=== PATIENT | male | born 1970 | race Hispanic/Latino ===

== ENCOUNTER 2017-04-19 17:44 | Emergency (ER) | payer OTHER, SELFPAY ==
[2017-04-19] MEDS ORDERED: Ketorolac Tromethamine 30 MG/ML VIAL ONE (20:06)
[2017-04-19 20:27] LABS: #Eosinphils 0.2 thou/uL (0.0-0.7); #Lymphocytes 1.3 thou/uL (1.20-3.40); #Monocytes 0.6 thou/uL (0.11-0.59); #Neutrophils 4.5 thou/uL (1.40-6.50); %Eosinophils 3.3 % (0.0-10.0); %Lymphocytes 19.2 % (21.0-51.0); %Monocytes 8.7 % (0.0-10.0); Hematocrit 46.5 % (42.0-52.0); Mean Platelet Volume 8.1 fL (7.4-10.4); Red Blood Cell (RBC) Count 4.92 mill/uL (4.70-6.10); White Blood Cell (WBC) Count 6.5 thou/uL (4.8-10.8)
[2017-04-19 20:45] LABS: ALT (SGPT) 14 U/L (8-55); AST (SGOT) 15 U/L (5-34); Alkaline Phosphatase 95 U/L (40-150); Anion Gap 14 mmol/L (10-20); BUN (Urea Nitrogen) 14 mg/dL (8.9-20.6); Bilirubin, Total 0.4 mg/dL (0.2-1.2); Calc. Creatinine Clearance 0 mL/min (70-130); Calcium 8.8 mg/dL (7.8-10.44); Carbon Dioxide 21 mmol/L (22-29); Chloride 104 mmol/L (98-107); Estimated GFR-MDRD Greater than 90; Globulin 3.5 g/dL (2.4-3.5); Protein, Total 7.6 g/dL (6.0-8.3)
--- NOTE | 2017-04-19 20:48 | RAD ---
CHEST TWO VIEWS: History: Cough. FINDINGS: Cardiac silhouette and pulmonary vasculature are unremarkable. Mediastinum is midline. There is no c onfluent airspace consolidation, pneumothorax or pleural fluid evident. IMPRESSION: No active cardiopulmonary abnormalities are demonstrated. POS: [facility]
[2017-04-19] MEDS ORDERED: methylPREDNISolone Sod Succ/PF 125 MG/2 ML VIAL ONE (21:06)
== END 2017-04-19 21:16 | disposition home or self-care (01) ==
LOC: ERS 17:44
DX: R05 Cough (principal); R09.81 Nasal congestion; F32.9 Major depressive disorder, single episode, unspecified; Z79.899 Other long term (current) drug therapy
CPT/HCPCS: 71020; 80053; 85025; 94640; 96361; 96374; 96375; J1885; J2930; J7620

== ENCOUNTER 2017-10-29 00:45 | Emergency (ER) | payer BC, SELFPAY ==
[2017-10-29] MEDS ORDERED: predniSONE 20 MG TAB ONE (01:12)
[2017-10-29] MEDS ORDERED: diphenhydrAMINE 50 MG CAP ONE (01:12)
== END 2017-10-29 02:17 | disposition home or self-care (01) ==
LOC: ERS 00:45
DX: R22.0 Localized swelling, mass and lump, head (principal); T50.905A Adverse effect of unspecified drugs, medicaments and biological substances, initial encounter; F32.9 Major depressive disorder, single episode, unspecified; R56.9 Unspecified convulsions; Z79.899 Other long term (current) drug therapy
CPT/HCPCS: 99283; J7506

== ENCOUNTER 2022-12-20 01:17 | Emergency (ER) | payer BC, SELFPAY | END 2022-12-20 02:32 | disposition home or self-care (01) | LOC: ERS 01:17 | DX: H60.92 Unspecified otitis externa, left ear (principal) | CPT/HCPCS: 99282 ==

== ENCOUNTER 2023-05-14 20:27 | Emergency (ER) | payer BC ==
[2023-05-14] MEDS ORDERED: Ibuprofen 800 MG TAB ONE ×2 (21:10→21:14)
== END 2023-05-14 22:21 | disposition home or self-care (01) ==
LOC: ERS 20:27
DX: M70.52 Other bursitis of knee, left knee (principal)